=== PATIENT | female | born 1975 ===

== ENCOUNTER 2019-01-03 11:50 | Inpatient (IN) | payer OTHER ==
[~2019-01-03] VITALS: Ht 165.1 cm; Wt 76.2 kg
[2019-01-03] MEDS ORDERED: ALTACE5 MG PO (12:51)
== END 2019-01-07 16:34 | disposition home or self-care (01) | DRG 581 ==
LOC: EDSTATUS 11:50 → SURH 11:51 → CIR.AMB 15:55 → SURH 01-06 08:18 → O/R 01-06 08:18 → SURH 01-06 14:22
PROVIDERS: ADMIT Plastic Surgery
PROC: 0H0V0ZZ Alteration of Bilateral Breast, Open Approach (ICD-10-PCS; 2019-01-06)
PROC: 0W0F0ZZ Alteration of Abdominal Wall, Open Approach (ICD-10-PCS; principal; 2019-01-06 13:00)
DX: N62 Hypertrophy of breast (principal); M62.08 Separation of muscle (nontraumatic), other site; E65 Localized adiposity